=== PATIENT | male | born 1975 | race Caucasian/White ===

== ENCOUNTER → 2023-02-21 | Outpatient (CLI) | payer BC ==
--- NOTE | 2023-02-22 21:40 | MR ---
EXAMINATION TYPE: MR knee LT wo con DATE OF EXAM: 02/21/2023 COMPARISON: None HISTORY: DJD. Medial meniscus tear. TECHNIQUE: Multiplanar, multisequence imaging of the left knee is performed without contrast. FINDINGS: Medial meniscus: Degenerative blunting of the free margin of the medial meniscus. Medial compartment cartilage: Near complete loss of the femoral articular cartilage. High-grade thinn ing of the medial tibial plateau cartilage. Medial collateral ligament: Intact. Lateral meniscus: Intact. Lateral compartment cartilage: Normal. Lateral collateral ligament: Intact. Patellofemoral alignment: Normal. Patellofemoral compartment cartilage: Normal. Extensor mechanism: Normal. Anterior cruciate ligament: Intact. Posterior cruciate ligament: Intact. Bone marrow: Normal. Soft tissues: Mild increased signal within the popliteus tendon, relating to tendinosis. Small joint effusion. Trace trilobed Basurto's cyst. Neurovascular: Normal. IMPRESSION: 1. Medial tibiofemoral compartment advanced osteoarthrosis with associated degenerative blunting of t he medial meniscus. 2. Popliteus tendinosis. 3. Small joint effusion.
--- NOTE | 2023-02-22 21:43 | MR ---
EXAMINATION TYPE: MR knee RT wo con DATE OF EXAM: 02/21/2023 COMPARISON: None HISTORY: DJD TECHNIQUE: Multiplanar, multisequence imaging of the right knee is performed without contrast. FINDINGS: Medial meniscus: Degenerative blunting and increased intrasubstance signal throughout the medial meni scus. Medial compartment cartilage: High-grade thinning of the medial femoral condyle cartilage. High-grade thinning throughout the medial tibial plateau cartilage with small areas of full-thickness articular cartilage loss. Medial collateral ligament: Intact. Lateral meniscus: Intact. Lateral compartment cartilage: Normal. Lateral collateral ligament: Intact. Patellofemoral alignment: Normal. Patellofemoral compartment cartilage: Full thickness articular cartilage fissure in the deep trochlea r groove cartilage. Extensor mechanism: Normal. Anterior cruciate ligament: Intact. Posterior cruciate ligament: Intact. Bone marrow: Normal. Soft tissues: Normal. Small joint effusion. No Basurto's cyst. Neurovascular: Normal. IMPRESSION: 1. Medial tibiofemoral compartment advanced osteoarthrosis with associated degenerative blunting and signal changes throughout the medial meniscus. 2. Trochlear chondromalacia. 3. Small joint effusion.
== END | disposition home or self-care (01) ==
LOC: RADMRIMAIN 07:05
PROVIDERS: ATTEND Orthopaedic Surgery
DX: S83.242A Other tear of medial meniscus, current injury, left knee, initial encounter (principal); M25.461 Effusion, right knee; M17.0 Bilateral primary osteoarthritis of knee; M25.462 Effusion, left knee; M67.864 Other specified disorders of tendon, left knee

== ENCOUNTER → 2023-02-21 | Outpatient (CLI) | payer BC | END | disposition home or self-care (01) | LOC: RADMRIMAIN 07:08 | PROVIDERS: ATTEND Orthopaedic Surgery | DX: Z53.9 Procedure and treatment not carried out, unspecified reason (principal) ==